=== PATIENT | female | born 1955 | race Caucasian/White ===

== ENCOUNTER → 2017-09-05 | Outpatient (CLI) | payer MEDICARE, OTHER ==
[~2017-09-05] MED LIST: AMIT75 PO; BENZ100A PO; CELE200 PO; DIAZ5; DULO60 PO; FISH1000; FLUSAL2505; FURO20; Flovent Diskus50 MCG; GABA800 PO; HYDACE5325 PO; IBUP800 PO; INS70/30PN; INSDET100 SC; ISODIN10 PO; ISOMON30 PO; LISI20 PO; METF500C PO; NAPR220 PO; OMEG1CAP30 PO; OMEP20ER PO; PIOG30 PO; PRAV20 PO; PREG150 PO; PROM25 PO; PSEU120ER PO; Prednisone20 MG PO; RXHYDACE PO; SEROQUEL XR; TIOT18 INH; TOPI100 PO; TRADJENTA5 MG PO; Ventolin Soln3 ML INH; ZOLP5; Zithromax250 MG PO
[2017-09-05 19:00] LABS: U Amphetamine Screen Not Detected; U Barbituate Screen Not Detected; U Benzodiazapine Screen Not Detected; U Buprenorphine Screen Not Detected; U Cannabinoids Screen Not Detected; U Cocaine Screen Not Detected; U Methadone Screen Not Detected; U Methamphetamine Screen Not Detected; U Opiates Screen Not Detected; U Oxycodone Screen Not Detected; U Phencyclidine Screen Not Detected; U Propoxyphene Screen Not Detected
== END ==
LOC: LAB 18:24 → LAB SHORT 18:24
PROVIDERS: Registered Nurse
DX: Z51.81 Encounter for therapeutic drug level monitoring (principal); Z79.899 Other long term (current) drug therapy

== ENCOUNTER → 2017-09-19 | Outpatient (CLI) | payer MEDICARE, OTHER | LOC: LAB SHORT 16:15 → LAB 16:15 | PROVIDERS: Nurse Practitioner Family | DX: Z01.419 Encounter for gynecological examination (general) (routine) without abnormal findings (principal) | CPT/HCPCS: 87624; G0145 ==

== ENCOUNTER 2018-12-13 17:34 | Observation (INO) | payer MEDICARE, OTHER ==
[~2018-12-13] VITALS: Ht 160 cm; Wt 93.8 kg
[~2018-12-13 17:34] MED LIST changes: +ALBU2.5V5 NEB; +ALBU90OI INH; +CLOB.05TO TOP; +CLON.5 PO; +Estrogel93 GM; +FENO48 PO; +FLUT1DIS5 INH; +FURO20 PO; +Flonase 0.05% N16 GM; +LIRA0.6P SC; +Novolog100 UNIT/2; +PANT40 PO; +POTCHL10ER PO; +Pravachol40 MG PO; +QUET200 PO; +Ranitidine HCl300 MG PO; +Venlafaxine HC100 MG PO; +ZOLP10 PO
[2018-12-13] MEDS ORDERED: OMEP20ER PO (18:25)
--- NOTE | 2018-12-13 18:59 | NUR ---
SHIFT SUMMARY PATIENT TO THE FLOOR AT 1730 AND ADMISSION IS DONE. AWAITING ORDERS FROM DR. JEFF TO MOVE INTO THE SYSTEM AT THIS TIME. PATIENT IS SETTLED AND AWAITING CURRENT ORDERS. ALERT AND ORIENTED, INDEPENDENT IN THE ROOM. NO OTHER CONCERNS.
[2018-12-14 05:22] LABS: BASOPHILS ABSOLUTE AUTO 0.01 K/mm3 (0.00-0.23); BASOPHILS PERCENT AUTO 0 % (0-2); EOSINOPHILS ABSOLUTE AUTO 0.05 K/mm3 (0.00-0.68); EOSINOPHILS PERCENT AUTO 1 % (0-6); Hematocrit 42.4 % (33.0-51.0); Hemoglobin 13.1 g/dL (11.5-16.0); IMMATURE GRAN ABSOLUTE AUTO 0.02 K/mm3 (0.00-0.10); IMMATURE GRAN PERCENT AUTO 0 % (0-1); LYMPHOCYTES ABSOLUTE AUTO 3.97 K/mm3 (0.84-5.20); LYMPHOCYTES PERCENT AUTO 44 % (21-46); MONOCYTES ABSOLUTE AUTO 0.64 K/mm3 (0.16-1.47); MONOCYTES PERCENT AUTO 7 % (4-13); Mean Corpuscular HGB Conc 30.9 g/dL (31.5-36.5); Mean Platelet Volume 9.1 fL (9.1-12.4); NEUTROPHILS ABSOLUTE AUTO 4.39 K/mm3 (1.96-9.15); NEUTROPHILS PERCENT AUTO 48 % (41-73); Platelet Count 296 K/mm3 (150-400); RDW Coefficient Variation 13.5 % (11.7-14.2); RDW Standard Deviation 46.1 fL (35.1-46.3); Red Blood Cell Count 4.52 M/mm3 (3.80-5.20); White Blood Cell Count 9.08 K/mm3 (4.00-11.30)
[2018-12-14 05:25] LABS: Mean Corpuscular Volume 94 fL (80-100)
[2018-12-14 05:45] LABS: Alanine Aminotransfer (ALT/SGP 25 U/L (12-78); Albumin, Blood 3.3 g/dL (3.4-5.0); Albumin/Globulin Ratio 0.9 (0.8-1.8); Alk Phos 103 U/L (50-136); Anion Gap 4 mmol/L (6-16); Aspartate Aminotrans (AST/SGOT 15 U/L (12-37); Bilirubin, Total 0.3 mg/dL (0.1-1.0); Blood Urea Nitrogen 8 mg/dL (8-24); Bun/Creatinine Ratio 8.1 (12.0-20.0); CO2, Blood 29 mmol/L (21-32); Calcium, Blood 8.5 mg/dL (8.5-10.1); Chloride, Blood 110 mmol/L (98-108); Creatinine, Blood 0.99 mg/dL (0.40-1.00); Globulin, Blood 3.8 g/dL (2.2-4.0); Glomerular Filtration Rate >60 (60-); Glucose, Blood 159 mg/dL (70-99); Potassium, Blood 3.9 mmol/L (3.5-5.5); Sodium, Blood 143 mmol/L (136-145); Total Protein, Blood 7.1 g/dL (6.4-8.2)
--- NOTE | 2018-12-14 11:00 | NUR ---
Physician notified Dr. Harp notified RE whether or not to continue NPO diet, BS checks q 4, and pt request for Tylenol for headache. Orders received.
--- NOTE | 2018-12-14 17:48 | NUR ---
Shift Summary A/Ox4. Pleasant and cooperative with care. Pt had CT scan today, results are in. Medicated for abdominal pain x 2 and headache x 1. Patient states headache is probably from "caffeine withdraw". Pt tolerating clear diet well and asked for coffee with creamer, tolerated that well too. Pt advanced to ADA diet for dinner. Plan is possibly to discharge with outpatient GI scope once patient tolerating ADA diet tomorrow (12/15). No IV pain meds were given this shift, no other acute changes. Call light near, family at bedside.
--- NOTE | 2018-12-14 18:02 | NUR ---
Physician notified L/M with Dr. Harp RE home medication Venlafaxine on EMAR not reflecting the correct dose. EMAR states 100mg XR; however when patient brought home med in, label shows 150mg ER. Asked Dr. Harp to change EMAR to reflect 150mg ER.
--- NOTE | 2018-12-15 02:52 | NUR ---
Shift summary: Pt has been sleeping most of shift with no c/o discomfort. Pt tolerating real food with no issues after pm meal .Pt anticipating a possible d/c in am.
[2018-12-15] MEDS ORDERED: HYDR1TAB94 PO (08:30)
--- NOTE | 2018-12-15 08:56 | NUR ---
DISCHARGE INSTRUCTIONS VERBALIZED AND A PRINTED COPY GIVEN TO THE PATIENT. FOLLOW-UP APPT SCHEDULED WITH DR JEFF FOR THIS Saturday12/17/18. ALL QUESTIONS ANSWERED. HARD-SCRIPT OF [place] GIVEN TO PATIENT AND PLACED IN DISCHARGE PACKET. PATIENT IN ROOM AWAITING RIDE HOME. PATIENT CONTACTED FAMILY MEMBER REGARDING DISCHARGE AND TRANSPORT HOME.
--- NOTE | 2018-12-15 09:00 | NUR ---
PATIENT D/C'D TO HOME WITH SPOUSE. RX MEDICATIONS FAXED TO [facility] AND SCRIPT FOR [facility]CO GIVEN TO PATIENT. D/C INSTRUCTIONS AND EDUCATION DICUSSED WITH PATIENT AND COPY PROVIDED. PATIENT DENIES ANY FURTHER QUESTIONS OR CONCERNS.
== END 2018-12-15 09:20 | disposition home or self-care (01) ==
LOC: MEDS 17:34
PROVIDERS: ADMIT Family Medicine
DX: K85.90 Acute pancreatitis without necrosis or infection, unspecified (principal); E11.9 Type 2 diabetes mellitus without complications; I10 Essential (primary) hypertension; K21.9 Gastro-esophageal reflux disease without esophagitis; E02 Subclinical iodine-deficiency hypothyroidism; E78.5 Hyperlipidemia, unspecified; G47.30 Sleep apnea, unspecified; Z88.8 Allergy status to other drugs, medicaments and biological substances; Z79.899 Other long term (current) drug therapy; Z79.51 Long term (current) use of inhaled steroids; Z79.4 Long term (current) use of insulin
CPT/HCPCS: 36415; 74160; 80053; 82947; 83690; 85025; 94760; 96361; 96372; 96374; 96375; A9270; C9113; G0378; J1170; J1650; J2405; J7030; Q9967

== ENCOUNTER → 2019-02-02 | Outpatient (CLI) | payer MEDICARE, OTHER ==
[~2019-02-02] MED LIST changes: +CLON.5; +HYDR1TAB94 PO; +OXYC5; +POTA10T; +Prevalite Pac4 G/PKT; +WIXELA 250-501 EACH
[2019-02-04 13:07] LABS: HPV 16 Negative (Negative); HPV 18 Negative (Negative); HPV OTHER HR TYPES Negative (Negative)
== END | disposition home or self-care (01) ==
LOC: LAB SHORT 16:17 → LAB 16:17
PROVIDERS: Family Medicine
DX: Z12.4 Encounter for screening for malignant neoplasm of cervix (principal)
CPT/HCPCS: 87624; G0123

== ENCOUNTER 2019-02-04 10:33 | Day surgery (SDC) | payer MEDICARE, OTHER ==
[~2019-02-04] VITALS: Ht 160 cm; Wt 95.5 kg
== END 2019-02-04 12:35 | disposition home or self-care (01) ==
LOC: ORSCSDS 10:33
PROVIDERS: Internal Medicine Gastroenterology
PROC: 0DB68ZX Excision of Stomach, Via Natural or Artificial Opening Endoscopic, Diagnostic (ICD-10-PCS; principal; 2019-02-04 11:45)
PROC: 0DB98ZX Excision of Duodenum, Via Natural or Artificial Opening Endoscopic, Diagnostic (ICD-10-PCS; principal; 2019-02-04 11:45)
DX: R10.13 Epigastric pain (principal); R19.7 Diarrhea, unspecified; K29.70 Gastritis, unspecified, without bleeding; E78.5 Hyperlipidemia, unspecified; I10 Essential (primary) hypertension; G47.33 Obstructive sleep apnea (adult) (pediatric); E11.9 Type 2 diabetes mellitus without complications; E66.01 Morbid (severe) obesity due to excess calories; Z68.37 Body mass index [BMI] 37.0-37.9, adult; F32.9 Major depressive disorder, single episode, unspecified; Z79.4 Long term (current) use of insulin; Z79.899 Other long term (current) drug therapy
CPT/HCPCS: 82947; 88305; 88342; J2704; J7120

== ENCOUNTER → 2019-05-07 | Outpatient (CLI) | payer MEDICARE, OTHER ==
[2019-05-07 20:14] LABS: U Amphetamine Screen Not Detected; U Barbituate Screen Not Detected; U Benzodiazapine Screen Not Detected; U Buprenorphine Screen Not Detected; U Cannabinoids Screen Not Detected; U Cocaine Screen Not Detected; U Methadone Screen Not Detected; U Methamphetamine Screen Not Detected; U Opiates Screen DETECTED; U Oxycodone Screen Not Detected; U Propoxyphene Screen Not Detected
== END ==
LOC: LAB 16:00 → LAB SHORT 16:00
PROVIDERS: Registered Nurse
DX: Z51.81 Encounter for therapeutic drug level monitoring (principal); Z79.899 Other long term (current) drug therapy

== ENCOUNTER → 2020-11-09 | Outpatient (CLI) | payer MEDICARE, OTHER | END | disposition home or self-care (01) | LOC: LAB 11:52 → LAB SHORT 11:52 | DX: J02.9 Acute pharyngitis, unspecified (principal) | CPT/HCPCS: 87081 ==

== ENCOUNTER 2021-02-06 18:09 | Emergency (ER) | payer MEDICARE, OTHER ==
[~2021-02-06] VITALS: Ht 160 cm; Wt 98.9 kg
[2021-02-06 19:58] LABS: Source, Urine Clean Catch
[2021-02-06] MEDS ORDERED: TRESIBA FL200 UNIT/2 SQ (19:59)
[2021-02-06] MEDS ORDERED: Prinivil10 MG PO (20:01)
[2021-02-06] MEDS ORDERED: VENL75ER PO (20:02)
[2021-02-06 20:04] LABS: Appearance, Urine Clear (Clear); Bilirubin, Urine Neg (Neg); Blood, Urine Neg (Neg); Color, Urine Yellow (P-Yellow); Glucose Qualitative, Urine 4+ (Neg); Ketones, Urine Neg (Neg); Leukocyte Esterase, Urine 1+ (Neg); Nitrite, Urine Neg (Neg); Protein, Urine Neg (Neg); Urobilinogen, Urine NORM (Normal)
[2021-02-06 20:18] LABS: Bacteria Rare /hpf; Red Blood Cells, Urine 0-2 /hpf (0-2); Squamous Epithelial Cells Rare /hpf (Few)
[2021-02-06] MEDS ORDERED: NAPR500 PO (22:07)
[2021-02-06] MEDS ORDERED: METPRE4DP PO (22:07)
[2021-02-06] MEDS ORDERED: LIDO700A20 TOP (22:07)
[2021-02-06] MEDS ORDERED: Robaxin750 MG PO (22:07)
== END 2021-02-06 22:28 | disposition home or self-care (01) ==
LOC: ER 18:09
PROVIDERS: Student in an Organized Health Care Education/Training Program
DX: M54.41 Lumbago with sciatica, right side (principal); M54.16 Radiculopathy, lumbar region; E11.9 Type 2 diabetes mellitus without complications; E03.9 Hypothyroidism, unspecified; K21.9 Gastro-esophageal reflux disease without esophagitis; I10 Essential (primary) hypertension; Z88.8 Allergy status to other drugs, medicaments and biological substances; Z79.899 Other long term (current) drug therapy; Z79.4 Long term (current) use of insulin; Z87.891 Personal history of nicotine dependence
CPT/HCPCS: 81001; 87086; 96372; 99284-25; A9270; J1885; J7512

== ENCOUNTER 2021-03-15 13:46 | Emergency (ER) | payer MEDICARE, OTHER ==
[~2021-03-15] VITALS: Ht 160 cm; Wt 99.8 kg
[~2021-03-15 13:46] MED LIST changes: +LIDO700A20 TOP; +METPRE4DP PO; +NAPR500 PO; +Prinivil10 MG PO; +Robaxin750 MG PO; +TRESIBA FL200 UNIT/2 SQ; +VENL75ER PO
[2021-03-15 14:51] LABS: BASOPHILS ABSOLUTE AUTO 0.01 K/mm3 (0.00-0.23); BASOPHILS PERCENT AUTO 0 % (0-2); EOSINOPHILS ABSOLUTE AUTO 0.01 K/mm3 (0.00-0.68); EOSINOPHILS PERCENT AUTO 0 % (0-6); Hematocrit 45.6 % (33.0-51.0); Hemoglobin 15.1 g/dL (11.5-16.0); IMMATURE GRAN ABSOLUTE AUTO 0.07 K/mm3 (0.00-0.10); IMMATURE GRAN PERCENT AUTO 1 % (0-1); LYMPHOCYTES ABSOLUTE AUTO 2.42 K/mm3 (0.84-5.20); LYMPHOCYTES PERCENT AUTO 17 % (21-46); MONOCYTES ABSOLUTE AUTO 0.67 K/mm3 (0.16-1.47); MONOCYTES PERCENT AUTO 5 % (4-13); Mean Corpuscular HGB 28.8 pg (26.0-34.0); Mean Corpuscular HGB Conc 33.1 g/dL (31.5-36.5); Mean Corpuscular Volume 87 fL (80-100); Mean Platelet Volume 9.2 fL (9.1-12.4); NEUTROPHILS ABSOLUTE AUTO 10.75 K/mm3 (1.96-9.15); NEUTROPHILS PERCENT AUTO 77 % (41-73); Platelet Count 292 K/mm3 (150-400); RDW Coefficient Variation 14.3 % (11.7-14.2); RDW Standard Deviation 45.5 fL (35.1-46.3); Red Blood Cell Count 5.25 M/mm3 (3.80-5.20); White Blood Cell Count 13.93 K/mm3 (4.00-11.30)
[2021-03-15 14:54] LABS: Source, Urine Clean Catch
[2021-03-15 15:01] LABS: Appearance, Urine Clear (Clear); Bilirubin, Urine Neg (Neg); Blood, Urine 1+ (Neg); Color, Urine Yellow (P-Yellow); Glucose Qualitative, Urine 4+ (Neg); Ketones, Urine Neg (Neg); Leukocyte Esterase, Urine 2+ (Neg); Nitrite, Urine Neg (Neg); Protein, Urine 1+ (Neg); Specific Gravity, Urine 1.025 (1.003-1.022); Urobilinogen, Urine NORM (Normal)
[2021-03-15 15:08] LABS: Bacteria Mod /hpf
[2021-03-15 15:09] LABS: Amorphous Light (0-Heavy); Mucus Heavy (0-Heavy); Squamous Epithelial Cells Mod /hpf (Few)
[2021-03-15 15:12] LABS: Albumin, Blood 2.9 g/dL (3.4-5.0); Albumin/Globulin Ratio 0.7 (0.8-1.8); Bilirubin, Total 0.5 mg/dL (0.1-1.0); Bun/Creatinine Ratio 18.4 (12.0-20.0); Creatinine, Blood 1.36 mg/dL (0.40-1.00); Globulin, Blood 4.4 g/dL (2.2-4.0); Potassium, Blood 4.4 mmol/L (3.5-5.5); Total Protein, Blood 7.3 g/dL (6.4-8.2)
[2021-03-15 17:27] LABS: Source, Urine Clean Catch
[2021-03-15 17:34] LABS: Appearance, Urine Clear (Clear); Bilirubin, Urine Neg (Neg); Blood, Urine Neg (Neg); Color, Urine Yellow (P-Yellow); Glucose Qualitative, Urine 4+ (Neg); Ketones, Urine Neg (Neg); Leukocyte Esterase, Urine 1+ (Neg); Nitrite, Urine Neg (Neg); Protein, Urine 1+ (Neg); Specific Gravity, Urine 1.015 (1.003-1.022); Urobilinogen, Urine NORM (Normal)
[2021-03-15 17:48] LABS: Bacteria Mod /hpf; Red Blood Cells, Urine 0-2 /hpf (0-2); Squamous Epithelial Cells Rare /hpf (Few)
[2021-03-15 17:49] LABS: WBC Cast 0-2 /lpf (0)
[2021-03-15] MEDS ORDERED: ONDA4 PO (18:41)
[2021-03-15] MEDS ORDERED: AMOX-CLAV 875-1 EAC1 PO (18:41)
== END 2021-03-15 18:58 | disposition home or self-care (01) ==
LOC: ER 13:46
PROVIDERS: Physician Assistant
DX: A09 Infectious gastroenteritis and colitis, unspecified (principal); E11.9 Type 2 diabetes mellitus without complications; E03.9 Hypothyroidism, unspecified; K21.9 Gastro-esophageal reflux disease without esophagitis; I10 Essential (primary) hypertension; F17.210 Nicotine dependence, cigarettes, uncomplicated; Z79.899 Other long term (current) drug therapy
CPT/HCPCS: 36415; 74177; 80053; 81001; 83605; 83690; 85025; 87077; 87086; 87147; 87186; A9270; J1200; J1885; J2405; J2930; J7030; Q9967

== ENCOUNTER 2021-12-25 12:54 | Emergency (ER) | payer MEDICARE, OTHER ==
[~2021-12-25] VITALS: Ht 157.5 cm; Wt 98.4 kg
[~2021-12-25 12:54] MED LIST changes: +AMOX-CLAV 875-1 EAC1 PO; +ONDA4 PO
== END 2021-12-25 16:37 | disposition left against medical advice (07) ==
LOC: ER 12:54
DX: R20.0 Anesthesia of skin (principal); M54.9 Dorsalgia, unspecified; M79.606 Pain in leg, unspecified; Z53.21 Procedure and treatment not carried out due to patient leaving prior to being seen by health care provider
CPT/HCPCS: 99281

== ENCOUNTER → 2023-01-20 | Outpatient (CLI) | payer MEDICARE, OTHER | LOC: LAB SHORT 09:59 → LAB 09:59 → LAB SHORT 01-21 09:59 | DX: R10.10 Upper abdominal pain, unspecified (principal) | CPT/HCPCS: 87338 ==

== ENCOUNTER 2024-02-17 06:35 | Day surgery (SDC) | payer MEDICARE, OTHER ==
[~2024-02-17] VITALS: Ht 160 cm; Wt 101.3 kg
[~2024-02-17 06:35] MED LIST changes: +Lactated Ringer's 1,000 ML IV SCH
[2024-02-17 07:34] VITALS: BP 149/66
--- NOTE | 2024-02-17 07:37 | NUR ---
INTO SDS. HISTORY AND ALLERGIES REVIEWED. PT REPORTS 10/01 LOW BACK PAIN-ONGOING ISSUE FOR HER. LUNGS CLEAR-NO NOTED SOB-SATS>90% ON RA. NPO STATUS CONFIRMED. Patient states colon prep results clear. Patient States Post-Procedure ride home has been arranged.
[2024-02-17] MEDS ORDERED: propofoL 60 ML IV ONE (08:20)
--- NOTE | 2024-02-17 08:26 | NUR ---
02/17/24 0826 Kathryn Chatman MONITOR INTACT WITH CONTINUOUS PULSE OXIMETRY, CONTINUOUS END TITAL CO2, AND INTERMITTENT BLOOD PRESSURE.
[2024-02-17] MEDS ORDERED: OZEMPIC0.25 MG/02 SC (08:30)
[2024-02-17 08:42] VITALS: BP 99/55
--- NOTE | 2024-02-17 08:42 | NUR ---
PT TO DAY SURGERY STEP DOWN FROM COLONOSCOPY; BEDSIDE REPORT RECEIVED. PT IS AWAKE, ALERT AND ORIENTED; ABLE TO MOVE SELF IN BED. PT AT BEDSIDE.
[2024-02-17 08:55] VITALS: BP 111/50
--- NOTE | 2024-02-17 08:55 | NUR ---
Patient up to Ambulate independently. Gait steady. Up to bathroom.
--- NOTE | 2024-02-17 09:04 | NUR ---
Discharge instructions reviewed with patient. Patient verbalizes understanding. Copy given to patient to take home. Patient States Post-Procedure ride home has been arranged.
--- NOTE | 2024-02-17 09:05 | NUR ---
Discharged via wheelchair to private car for ride home.
== END 2024-02-17 09:06 | disposition home or self-care (01) ==
LOC: ORSCMMR 06:35 → ORD 07:30 → ORSCMMR 09:06
PROVIDERS: Internal Medicine Gastroenterology
PROC: 0DJD8ZZ Inspection of Lower Intestinal Tract, Via Natural or Artificial Opening Endoscopic (ICD-10-PCS; principal; 2024-02-17 07:30)
DX: Z12.11 Encounter for screening for malignant neoplasm of colon (principal); Z86.0101 Personal history of adenomatous and serrated colon polyps; E11.9 Type 2 diabetes mellitus without complications; E78.00 Pure hypercholesterolemia, unspecified; K21.9 Gastro-esophageal reflux disease without esophagitis; E66.01 Morbid (severe) obesity due to excess calories; Z68.39 Body mass index [BMI] 39.0-39.9, adult; I10 Essential (primary) hypertension; I50.9 Heart failure, unspecified; Z79.4 Long term (current) use of insulin; Z79.899 Other long term (current) drug therapy; Z79.85 Long-term (current) use of injectable non-insulin antidiabetic drugs
CPT/HCPCS: 82947; J2704; J7120